=== PATIENT | male | born 1975 ===

== ENCOUNTER 2022-01-26 17:18 | Emergency (ER) | payer SELFPAY ==
[~2022-01-26] VITALS: Ht 188 cm; Wt 140.6 kg
== END 2022-01-26 18:57 | disposition home or self-care (01) ==
LOC: ER 17:18
DX: S60.221A Contusion of right hand, initial encounter (principal); F17.210 Nicotine dependence, cigarettes, uncomplicated; V47.5XXA Car driver injured in collision with fixed or stationary object in traffic accident, initial encounter; Y92.411 Interstate highway as the place of occurrence of the external cause
CPT/HCPCS: 73130; A9270